=== PATIENT | male | born 1975 | race Two or more races ===

== ENCOUNTER 2019-04-22 14:32 | Emergency (ER) | payer OTHER ==
[~2019-04-22] VITALS: Ht 172.7 cm; Wt 79.8 kg
--- NOTE | 2019-04-22 14:40 | NUR ---
lac on the left index and middle finger, last TDAP 2009. Patient kept comfortable.
[2019-04-22] MEDS ORDERED: LIDOCAINE HCL/MPF 1% 30 ML VIAL IJ ONE (14:44)
[2019-04-22] MEDS ORDERED: TDAP [DIPH/PERTUSSIS/TET] 0.5 ML VIAL IM ONE ×2 (14:44→15:00)
[2019-04-22] MEDS ORDERED: LIDOCAINE 1% INJ 50 ML MDV IJ ONE (15:00)
--- NOTE | 2019-04-22 16:08 | NUR ---
DRESSING INFORCED, SPLINT APPLIED. Patient discharged to home in stable condition. Written and verbal after care instructions given. Patient verbalizes understanding of instruction.
[2019-04-22 16:20] VITALS: BP 136/82
== END 2019-04-22 16:20 | disposition home or self-care (01) ==
LOC: ER 14:34
DX: S61.215A Laceration without foreign body of left ring finger without damage to nail, initial encounter (principal); S61.217A Laceration without foreign body of left little finger without damage to nail, initial encounter; W26.8XXA Contact with other sharp object(s), not elsewhere classified, initial encounter; Y93.89 Activity, other specified; Y92.89 Other specified places as the place of occurrence of the external cause; Y99.8 Other external cause status
CPT/HCPCS: 12002; 73130; 90471; 90715; 99284; A6403; J3490

== ENCOUNTER 2019-04-25 13:37 | Emergency (ER) | payer OTHER ==
[~2019-04-25] VITALS: Ht 177.8 cm; Wt 104.3 kg
[2019-04-25 13:41] VITALS: BP 127/68
--- NOTE | 2019-04-25 13:45 | NUR ---
PT CAME IN FOR WOUND CHECK. WAS HERE LAST MONDAY FOR LAC REPAIR. VSS. AAOX4. AMBULATORY. NO ACUTE DISTRESS NOTED.
--- NOTE | 2019-04-25 15:25 | NUR ---
Patient discharged to home in stable condition. Written and verbal after care instructions given. Patient verbalizes understanding of instruction.
== END 2019-04-25 15:25 | disposition home or self-care (01) ==
LOC: ER 13:40
DX: S61.215D Laceration without foreign body of left ring finger without damage to nail, subsequent encounter (principal); S61.217D Laceration without foreign body of left little finger without damage to nail, subsequent encounter; X58.XXXD Exposure to other specified factors, subsequent encounter

== ENCOUNTER 2019-05-05 17:11 | Emergency (ER) | payer OTHER ==
[~2019-05-05] VITALS: Ht 177.8 cm; Wt 104.3 kg
--- NOTE | 2019-05-05 17:31 | NUR ---
Mikayla VU, PAC AT THE BEDSIDE FOR SUTURE REMOVAL.
[2019-05-05] MEDS ORDERED: LIDOCAINE HCL/MPF 1% 30 ML VIAL IJ ONE (17:47)
[2019-05-05 18:28] VITALS: BP 121/71
== END 2019-05-05 18:28 | disposition home or self-care (01) ==
LOC: ER 17:13
DX: S61.215D Laceration without foreign body of left ring finger without damage to nail, subsequent encounter (principal); S61.217D Laceration without foreign body of left little finger without damage to nail, subsequent encounter; X58.XXXD Exposure to other specified factors, subsequent encounter
CPT/HCPCS: 99281; J3490